=== PATIENT | female | born 1985 | race Caucasian/White ===

== ENCOUNTER 2023-02-07 01:40 | Emergency (ER) | payer MEDICAID ==
[~2023-02-07] VITALS: Ht 172.7 cm; Wt 54.4 kg
[2023-02-07 02:25] VITALS: BP 116/75; PULSE 82; RESP 16; TEMP 96.3; O2SAT 100
[2023-02-07] MEDS ORDERED: FUROSEMIDE 40 MG TAB PO ONE (05:15)
[2023-02-07] MEDS ORDERED: cephALEXin 500 MG CAP PO ONE (05:15)
[2023-02-07] MEDS ORDERED: ACETAMINOPHEN EXTRA STRENGTH 500 MG TAB PO ONE (05:15)
[2023-02-07] MEDS ORDERED: CEPH-588 PO (05:25)
[2023-02-07] MEDS ORDERED: FURO-572 PO (05:25)
[2023-02-07] MEDS ORDERED: ACET-10509 PO (05:25)
[2023-02-07 05:54] VITALS: BP 120/75; PULSE 82; RESP 16; TEMP 96.4; O2SAT 100
== END 2023-02-07 05:54 | disposition home or self-care (01) ==
LOC: MED 01:40
DX: R60.9 Edema, unspecified (principal); L03.116 Cellulitis of left lower limb; L03.115 Cellulitis of right lower limb
CPT/HCPCS: 99284